=== PATIENT | female | born 1950 | race Caucasian/White ===

== ENCOUNTER 2017-01-24 08:51 | Emergency (ER) | payer MEDICARE ==
[2017-01-24] MEDS ORDERED: Ibuprofen TAB* 600 MG PO ONE (09:44)
[2017-01-24] MEDS ORDERED: HYDROcodone/ACETAMIN 5-325 MG* 1 TAB PO ONE (09:44)
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
--- NOTE | 2017-01-24 10:19 | RAD ---
Indication: Left ankle injury and pain. 2 views of left ankle demonstrates no fracture. Ankle mortise is intact. No other bone or joint abnormality is noted. IMPRESSION: No fracture of the left ankle is noted.
--- NOTE | 2017-01-24 10:20 | RAD ---
Indication: Left foot pain. 2 views left foot demonstrates no fracture or dislocation. No other bone or joint abnormality is noted. IMPRESSION: No fracture of the left foot is noted.
--- NOTE | 2017-01-24 10:23 | RAD ---
HISTORY: Injury, back pain COMPARISONS: None VIEWS: 3 , Frontal, lateral, and coned-down lateral sacral views of the lumbar spine FINDINGS: ALIGNMENT: The alignment is normal. VERTEBRAL BODIES: The vertebral body heights are normal. The interpedicular distances are normal. JOINTS: There is diffuse facet hypertrophic change INTERVERTEBRAL DISCS: There is mild diffuse loss of intervertebral disc height. SOFT TISSUE: Unremarkable. OTHER: The pelvis is unremarkable. The lung bases are clear. IMPRESSION: DIFFUSE FACET OSTEOARTHRITIS WITH MILD DEGENERATIVE DISC DISEASE
[2017-01-24 11:27] LABS: Urine Bacteria Absent (Absent); Urine Bilirubin Negative (Negative); Urine Glucose 2+(150 mg/dL) (Negative); Urine Nitrite Negative (Negative)
[2017-01-24 11:37] VITALS: BP 115/59
== END 2017-01-24 11:36 | disposition home or self-care (01) ==
LOC: ED 08:51
DX: M54.5 Low back pain (principal); S93.402A Sprain of unspecified ligament of left ankle, initial encounter; F17.210 Nicotine dependence, cigarettes, uncomplicated; S90.112A Contusion of left great toe without damage to nail, initial encounter; W22.8XXA Striking against or struck by other objects, initial encounter; Y93.9 Activity, unspecified; Y92.9 Unspecified place or not applicable
CPT/HCPCS: 72100; 81003; 81015; 99282; A9270-GY

== ENCOUNTER → 2017-10-03 08:55 | Emergency (ER) | payer MEDICARE ==
[~2017-10-03 08:55] MED LIST: Ibuprofen TAB* 800 MG PO ONE
[2017-10-03 09:02] VITALS: BP 123/61
--- NOTE | 2017-10-03 11:40 | RAD ---
INDICATION: Right foot injury. TECHNIQUE: 3 views of the right foot were obtained. FINDINGS: There is a small sclerotic benign-appearing lesion present in the proximal phalanx of the great toe. No other focal osseous abnormalities or fracture is seen. There is mild osteoarthritic change in the first metatarsal-phalangeal joint. IMPRESSION: NO EVIDENCE FOR FRACTURE. IF THE PATIENT'S SYMPTOMS PERSIST, RECOMMEND FOLLOW-UP IMAGING.
--- NOTE | 2017-10-03 11:41 | RAD ---
HISTORY: Left shoulder pain, fall COMPARISONS: None VIEWS: 4, Frontal internal rotation, external rotation, outlet, and axillary views of the left shoulder FINDINGS: BONE DENSITY: Normal. BONES: There is no displaced fracture. JOINTS: There is no arthropathy. ALIGNMENT: There is no dislocation. SOFT TISSUES: Unremarkable. OTHER FINDINGS: None. IMPRESSION: NO ACUTE OSSEOUS INJURY. IF SYMPTOMS PERSIST, RECOMMEND REPEAT IMAGING.
--- NOTE | 2017-10-03 11:41 | RAD ---
INDICATION: Left wrist injury. TECHNIQUE: 3 views of the left wrist were obtained. FINDINGS: The bones are in normal alignment. No fracture is seen. Joint spaces appear maintained. IMPRESSION: NO EVIDENCE FOR FRACTURE. IF THE PATIENT'S SYMPTOMS PERSIST RECOMMEND FOLLOW-UP IMAGING.
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
== END | disposition home or self-care (01) ==
LOC: ED 08:55
DX: S99.921A Unspecified injury of right foot, initial encounter (principal); S43.402A Unspecified sprain of left shoulder joint, initial encounter; S00.03XA Contusion of scalp, initial encounter; S60.419A Abrasion of unspecified finger, initial encounter; W19.XXXA Unspecified fall, initial encounter; S63.502A Unspecified sprain of left wrist, initial encounter; M79.671 Pain in right foot; M25.512 Pain in left shoulder; M25.532 Pain in left wrist; E11.9 Type 2 diabetes mellitus without complications; F17.210 Nicotine dependence, cigarettes, uncomplicated; W22.8XXA Striking against or struck by other objects, initial encounter; Y93.9 Activity, unspecified; Y92.9 Unspecified place or not applicable
CPT/HCPCS: 99282; A9270-GY

== ENCOUNTER 2018-07-03 08:41 | Emergency (ER) | payer MEDICARE ==
[2018-07-03] MEDS ORDERED: Ibuprofen TAB* 800 MG PO ONE (09:53)
--- NOTE | 2018-07-03 10:53 | RAD ---
INDICATION: Right ankle injury. TECHNIQUE: 3 views of the right ankle were obtained. FINDINGS: There is mild soft tissue swelling. The bones are in normal alignment. No fracture is seen. Joint spaces appear maintained. IMPRESSION: SOFT TISSUE SWELLING, NO FRACTURE IS SEEN.
--- NOTE | 2018-07-03 10:59 | RAD ---
INDICATION: Trauma. COMPARISON: Comparison is made with a prior study from September 06, 2013. TECHNIQUE: 3 views of the cervical spine were obtained including lateral, AP and open-mouth odontoid views. FINDINGS: The inferior aspect of the C6 vertebral body and the C7 vertebra projects over the shoulders and are not well visualized. There is straightening of the cervical spine. No prevertebral soft tissue swelling or fracture is seen. There is moderate to severe degenerative disc disease at the C4-C5, C5-C6 and C6-C7 levels. The results of this exam were discussed with the referring clinician. IMPRESSION: 1. LIMITED STUDY A PORTION OF THE C6 AND THE C7 VERTEBRA ARE OBSCURED BY THE PATIENT'S SHOULDERS. 2. STRAIGHTENING OF THE CERVICAL SPINE NO FRACTURE IS SEEN. 3. MODERATE TO SEVERE DEGENERATIVE DISC DISEASE IN THE LOWER CERVICAL SPINE.
--- NOTE | 2018-07-03 11:02 | RAD ---
INDICATION: RIGHT wrist anatomic. Tenderness to palpation and pain post fall. COMPARISON: July 10, 2016 TECHNIQUE: AP, lateral, and oblique views RIGHT wrist. Scaphoid view obtained. REPORT: No cortical disruption or suspicious trabecular irregularity to suggest fracture. Normal articular alignment. Subchondral cyst at the distal margin of the ulna without change. Unremarkable soft tissue contours. IMPRESSION: #. No radiographic evidence for scaphoid or other wrist fracture. If there is high index of suspicion for an occult scaphoid fracture repeat exam in 7 - 10 days would be suggested.
[2018-07-03 11:42] VITALS: BP 00/0
--- NOTE | 2018-07-27 09:46 | ED ---
Complex/Multi-Sys Presentation - HPI Summary HPI Summary: PT SEEN 07/03/2018: Pt here w/ multiple areas of pain s/p fall today. Reports she was going outside and slipped and fell. Denies striking her head and no LOC, JARRETT, change in vision. She does have neck pain which was so bothersome, nursing placed a soft collar. Additionally from fall, she has pain in her Rt ankle radiates up [place] which she landed oddly/twisted while falling - doesn't recall details. Has pain as well in her Rt wrist - may have landed here? Denies numbness, tingling, weakness. Has not tried anything prior to arrival. Has baseline pain in her lower back d/t arthritis - has norco she takes at home - this is not worse since fall. - History Of Current Complaint Chief Complaint: EDTraumaMultiple Time Seen by Provider: 07/03/18 09:14 Hx Obtained From: Patient - Allergies/Home Medications Allergies/Adverse Reactions: Allergies Allergy/AdvReac Type Severity Reaction Status Date / Time No Known Allergies Allergy Verified 07/03/18 08:59 PMH/Surg Hx/FS Hx/Imm Hx Previously Healthy: Yes Endocrine/Hematology History: Reports: Hx Diabetes - poorly controlled Denies: Hx Anticoagulant Therapy - takes ASA 81mg daily, Hx Blood Disorders Cardiovascular History: Denies: Hx Cardiac Arrest GI History: Reports: Hx Gastroesophageal Reflux Disease - takes PPI PRN Musculoskeletal History: Reports: Hx Arthritis - back pain - takes norco PRN Denies: Hx Osteoporosis Sensory History: Denies: Hx Contacts or Glasses Opthamlomology History: Denies: Hx Contacts or Glasses Infectious Disease History: No Infectious Disease History: Denies: Traveled Outside the [place] in Last 30 Days - Family History Known Family History: Positive: Diabetes - Social History Alcohol Use: None Substance Use Type: Reports: None Hx Tobacco Use: Yes Smoking Status (MU): Current Every Day Smoker Review of Systems Constitutional: Negative Negative: Fatigue Eyes: Negative Negative: Photophobia, Blurred Vision, Diplopia ENT: Negative Negative: Epistaxis, Dental Pain Cardiovascular: Negative Negative: Chest Pain Respiratory: Negative Negative: Shortness Of Breath Gastrointestinal: Negative Negative: Abdominal Pain, Nausea Negative: incontinence Positive: Arthralgia, Myalgia Positive: Bruising Neurological: Negative Positive: Anxious - concerned about injuries All Other Systems Reviewed And Are Negative: Yes Physical Exam Triage Information Reviewed: Yes Vital Signs On Initial Exam: Initial Vitals Temp Pulse Resp BP Pulse Ox 98 F 72 18 103/55 94 07/03/18 08:55 07/03/18 08:55 07/03/18 08:55 07/03/18 08:55 07/03/18 08:55 Vital Signs Reviewed: Yes Appearance: Positive: Well-Appearing, Well-Nourished, Pain Distress - mild to moderate - better w/ rest - would like to try ibuprofen Skin: Positive: Warm, Skin Color Reflects Adequate Perfusion, Dry - superficial abrasions of Rt hand - no bleeding Head/Face: Positive: Normal Head/Face Inspection - atraumatic Eyes: Positive: Normal, EOMI, JOSH - no photophobia ENT: Positive: Hearing grossly normal, Pharynx normal - atraumatic Dental: Negative: Dental Fracture @ Neck: Positive: Supple, Tenderness @ - pt can move neck but reports TTP over spinous pp and paracervical mm Respiratory/Lung Sounds: Positive: Breath Sounds Present Cardiovascular: Positive: Pulses are Symmetrical in both Upper and Lower Extremities. Negative: Leg Edema Left, Leg Edema Right Abdomen Description: Positive: Nontender, Soft Bowel Sounds: Positive: Present Musculoskeletal: Positive: Strength/ROM Intact, Pain @ - Rt ankle TTP, mild edema, no gross deformity - can move but is sore - has been bearing weight; Rt wrist is TTP - FROM -no gross deformity Neurological: Positive: Normal, Sensory/Motor Intact, Alert, Oriented to Person Place, Time, CN Intact II-III Psychiatric: Positive: Anxious Diagnostics - Vital Signs Vital Signs Temp Pulse Resp BP Pulse Ox 07/03/18 11:40 0 F 0 0 00/0 0 07/03/18 10:00 23 07/03/18 09:16 13 98/62 07/03/18 09:06 74 18 95 07/03/18 08:55 98 F 72 18 103/55 94 - Laboratory Lab Statement: Any lab studies that have been ordered have been reviewed, and results considered in the medical decision making process. Complex Multi-Symp Course/Dx Course Of Treatment: XR of cervical spine is inconclusive - radiology requesting CT for better clarity to r/o fx - pt declines and reports she has to go home and take care of things. SHe is aware she could have a significant injury that could result in worse pain, nerve impingment and/or paralysis. Rt wrist and Rt ankle XR's are w/o acute findings other than soft tissue swelling on ankle XR (correlate w/ clinical exam). She is moving this well and able to bear weight. Offered assistive walking device but pt declines. Since she is TTP over her wrist w/ possible FOOSH, will splint and advise f/u XR in 7-10 days to assess for occult fx. Supportive care for these injuries and advised to return to ED if danger s/sx present. Pt agrees w/ plan. - Diagnoses Provider Diagnoses: Fall from standing, Cervical pain, Right wrist sprain, Right ankle sprain Discharge - Sign-Out/Discharge Documenting (check all that apply): Patient Departure - Discharge Plan Condition: Stable Disposition: HOME Patient Education Materials: Ankle Sprain (ED), Wrist Injury (ED), Crutch Instructions (ED), Neck Pain (ED), Splint Care (ED) Referrals: [facility] [Outside] Additional Instructions: You were seen here today for multiple areas of pain after falling in her yard. Your cervical spine cannot be appropriately assessed so a clear diagnosis cannot be made today. You may simply have have a sprain with muscle spasm however you could have an occult fracture. A CT was recommended however he reported he will come back to the emergency department if any danger signs or symptoms present or if her pain persists. *If you develop worsening of her neck pain, headache, change in vision, numbness , tingling, weakness into your arms, return to the emergency department. Your wrist injury appears to be a sprain however given your mechanism of injury and location for pain, it is recommended she wear splint for 7-10 days and have repeat wrist x-ray. If in the meantime your pain resolves, a repeat x-ray is not necessary. Call your PCP to schedule. *If he developed numbness, tingling, skin discoloration, swelling or weakness, return to the emergency department Your right ankle does not appear to be fractured and dislocated. You appear to have a sprain. You may implement rest, ice, elevation and use your crutches to avoid repeated weightbearing in an effort to allow this to heal. Furthermore you may take ibuprofen or acetaminophen for pain. He may also use topical analgesic such as Biofreeze, etc. If pain persists beyond 1-2 weeks, follow up with her PCP. *If he developed numbness, tingling, skin discoloration or weakness, return to the emergency department NOTE: If you do not have a PCP, you may contact [facility] for follow-up appointment. Contact information provided here. - Billing Disposition and Condition Condition: STABLE Disposition: Home
== END 2018-07-03 11:40 | disposition home or self-care (01) ==
LOC: ED 08:41
DX: M54.2 Cervicalgia (principal); S63.501A Unspecified sprain of right wrist, initial encounter; S93.401A Sprain of unspecified ligament of right ankle, initial encounter; W01.0XXA Fall on same level from slipping, tripping and stumbling without subsequent striking against object, initial encounter; Y93.9 Activity, unspecified; Y92.9 Unspecified place or not applicable; Z79.82 Long term (current) use of aspirin; K21.9 Gastro-esophageal reflux disease without esophagitis; M54.9 Dorsalgia, unspecified; F17.200 Nicotine dependence, unspecified, uncomplicated
CPT/HCPCS: 72040; 99282; A9270-GY